=== PATIENT | male | born 1945 | race Caucasian/White ===

== ENCOUNTER 2017-02-14 06:30 | Day surgery (SDC) | payer OTHER, BC ==
[2017-02-10 12:23] VITALS: BMI 28.7
[2017-02-14] MEDS ORDERED: PROPOFOL 20 ML ONE (07:49)
[2017-02-14] MEDS ORDERED: MIDAZOLAM HCL 2 MG/2 ML SINGLE DOSE VIAL ONE (07:49)
[2017-02-14] MEDS ORDERED: oxyCODONE HCL 5 MG TABLET PO PRN (08:03)
[2017-02-14] MEDS ORDERED: ONDANSETRON 4 MG/2 ML VIAL IVPUSH PRN (08:03)
[2017-02-14] MEDS ORDERED: LEVOFLOXACIN 500 MG PREMIX BAG IVPB ONE (08:11)
[2017-02-14] MEDS ORDERED: LACTATED RINGERS SOLUTION 1,000 ML IV SCH (08:15)
[2017-02-14] MEDS ORDERED: LEVOFLOXACIN 500 MG IVPB 100 ML IVPB ONE (08:19)
[2017-02-14 09:46] VITALS: TEMP 98
[2017-02-14 10:05] VITALS: BP 138/78; PULSE 54
--- NOTE | 2017-02-14 11:41 | OP ---
Operative Note - Note: Operative Date: 02/14/17 Pre-Operative Diagnosis: left renal stone Operation: left ESWL Post-Operative Diagnosis: Same as Pre-op Surgeon: Jay Bernard
--- NOTE | 2017-02-15 11:45 | OP ---
DATE OF OPERATION: 02/14/2017 PREOPERATIVE DIAGNOSIS: Left renal stone. POSTOPERATIVE DIAGNOSIS: Left renal stone. PROCEDURE: Left extracorporeal shock wave lithotripsy. ATTENDING: Tracy Valenzuela MD ANESTHESIA: General. DESCRIPTION OF OPERATION: Patient was brought in the operating room, placed in a supine position on the operating room table. Ultrasonography and fluoroscopy were performed. A left lower pole 7-mm stone was identified. At this point, preoperative antibiotics and fractional anesthesia was administered. The patient had extracorporeal shock wave lithotripsy then performed; 2500 impulses at 18 joules of power were administered to the stone. Excellent fragmentation of the stone was noted under real-time ultrasonography and fluoroscopy. No complications were noted. The disposition of the patient was to recovery room. TRACY VALENZUELA M.D. [id number]
== END 2017-02-14 10:22 | disposition home or self-care (01) ==
LOC: JASU-SURG 06:30
PROVIDERS: ATTEND Urology
PROC: 0TF4XZZ Fragmentation in Left Kidney Pelvis, External Approach (ICD-10-PCS; principal; 2017-02-14 08:00)
DX: N20.0 Calculus of kidney (principal)
CPT/HCPCS: 94760